=== PATIENT | female | born 1945 | race Caucasian/White ===

== ENCOUNTER 2017-10-31 05:08 | Outpatient (CLI) | payer MEDICARE ==
[~2017-10-31 05:08] MED LIST: LISI40TA4 PO; SYN0.112T PO; tramadol PO
== END 2017-10-31 23:59 | disposition home or self-care (01) ==
LOC: DIABETIC 05:08
PROVIDERS: ATTEND Family Medicine
DX: E11.9 Type 2 diabetes mellitus without complications (principal); I10 Essential (primary) hypertension
CPT/HCPCS: G0108

== ENCOUNTER 2018-01-31 04:50 | Outpatient (CLI) | payer MEDICARE | END 2018-01-31 23:59 | disposition home or self-care (01) | LOC: DIABETIC 04:50 | PROVIDERS: ATTEND Family Medicine | DX: E11.9 Type 2 diabetes mellitus without complications (principal); I10 Essential (primary) hypertension | CPT/HCPCS: G0108 ==

== ENCOUNTER 2018-05-09 01:55 | Outpatient (CLI) | payer MEDICARE | END 2018-05-09 23:59 | disposition home or self-care (01) | LOC: DIABETIC 01:55 | PROVIDERS: ATTEND Family Medicine | DX: E11.9 Type 2 diabetes mellitus without complications (principal) | CPT/HCPCS: G0108 ==

== ENCOUNTER 2018-09-06 01:58 | Outpatient (CLI) | payer MEDICARE | END 2018-09-06 23:59 | disposition home or self-care (01) | LOC: DIABETIC 01:58 | PROVIDERS: ATTEND Family Medicine | DX: E11.9 Type 2 diabetes mellitus without complications (principal); I10 Essential (primary) hypertension | CPT/HCPCS: G0108 ==

== ENCOUNTER 2019-01-03 00:42 | Outpatient (CLI) | payer MEDICARE | END 2019-01-03 23:59 | disposition home or self-care (01) | LOC: DIABETIC 00:42 | PROVIDERS: ATTEND Family Medicine | DX: E11.9 Type 2 diabetes mellitus without complications (principal); I10 Essential (primary) hypertension | CPT/HCPCS: G0108 ==

== ENCOUNTER 2019-04-12 01:47 | Outpatient (CLI) | payer MEDICARE | END 2019-04-12 23:59 | disposition home or self-care (01) | LOC: DIABETIC 01:47 | PROVIDERS: ATTEND Family Medicine | DX: E11.9 Type 2 diabetes mellitus without complications (principal); I10 Essential (primary) hypertension; Z79.899 Other long term (current) drug therapy | CPT/HCPCS: G0108 ==

== ENCOUNTER 2019-09-10 05:00 | Outpatient (CLI) | payer MEDICARE | END 2019-09-10 23:59 | disposition home or self-care (01) | LOC: DIABETIC 05:00 | PROVIDERS: ATTEND Family Medicine | DX: E11.9 Type 2 diabetes mellitus without complications (principal); I10 Essential (primary) hypertension; Z88.0 Allergy status to penicillin; Z88.2 Allergy status to sulfonamides; Z88.8 Allergy status to other drugs, medicaments and biological substances; Z88.6 Allergy status to analgesic agent | CPT/HCPCS: G0108 ==

== ENCOUNTER 2019-12-10 04:19 | Outpatient (CLI) | payer MEDICARE | END 2019-12-10 23:59 | disposition home or self-care (01) | LOC: DIABETIC 04:19 | PROVIDERS: ATTEND Family Medicine | DX: E11.9 Type 2 diabetes mellitus without complications (principal) | CPT/HCPCS: G0108 ==

== ENCOUNTER 2021-10-16 11:52 | Emergency (ER) | payer MEDICARE ==
[~2021-10-16] VITALS: Ht 165.1 cm; Wt 107.7 kg
[~2021-10-16 11:52] MED LIST changes: +LISI40TA13 PO; -LISI40TA4 PO
[2021-10-16] MEDS ORDERED: SOTROVIMAB 500mg injection 500 MG in normal saline 100ml IV soln 100 ML IV ONE (14:25)
[2021-10-16] MEDS ORDERED: SOTROVIMAB 500 MG in NS 100ml IV soln IV ONE (15:00)
[2021-10-16 15:01] LABS: ALANINE AMINOTRANSFERASE 36 U/L (12-78); ALBUMIN 3.2 G/DL (3.4-5.0); ALBUMIN/GLOBULIN RATIO 0.7 (1.1-1.5); ALKALINE PHOSPHATASE 106 IU/L (46-116); ANION GAP 8 (8-16); ASPARTATE AMINO TRANSFERASE 24 U/L (10-37); BILIRUBIN,TOTAL 0.2 MG/DL (0.1-1.0); BLOOD UREA NITROGEN 21 MG/DL (7-18); BUN/CREATININE RATIO 18.3 (6.6-38.0); CALCIUM 8.6 MG/DL (8.5-10.1); CHLORIDE 105 MMOL/L (99-107); CREATININE 1.15 MG/DL (0.40-0.90); GLUCOSE 93 MG/DL (70-104); SODIUM 141 MMOL/L (135-145); TOTAL CARBON DIOXIDE 27.9 MMOL/L (24-32); TOTAL PROTEIN 7.6 G/DL (6.4-8.2); eGFR 46 ML/MIN
[2021-10-16] MEDS ORDERED: acetaminophen 325mg tablet PO ONE (16:10)
[2021-10-16] MEDS ORDERED: BENZ-38 PO (16:59)
[2021-10-16 17:55] VITALS: BP 142/87
== END 2021-10-16 17:56 | disposition home or self-care (01) ==
LOC: ER 11:55
DX: U07.1 COVID-19 (principal); R05.9 Cough, unspecified; R19.7 Diarrhea, unspecified; Z88.0 Allergy status to penicillin; Z88.8 Allergy status to other drugs, medicaments and biological substances; Z88.2 Allergy status to sulfonamides; Z79.899 Other long term (current) drug therapy
CPT/HCPCS: 36415; 80053; 87635; 96365; 99284; C9803; J3490; Q0247

== ENCOUNTER 2023-12-27 17:25 | Inpatient (IN) | payer BC, MEDICARE ==
[~2023-12-27] VITALS: Ht 170.2 cm; Wt 103.8 kg
[2023-12-27] MEDS: albuterol 2.5 MG/3 ML nebule NEB ONE (18:45)
[2023-12-27] MEDS: methylPREDNISolone sod succ 125mg/2ml vial IV ONE (18:45)
[2023-12-27 18:46] VITALS: PULSE 96; RESP 19; O2SAT 93
[2023-12-27 18:58] VITALS: PULSE 97; RESP 19; O2SAT 97
[2023-12-27 19:25] LABS: BASOPHILS # (AUTO) 0.1 X10'3 (0-0.2); BASOPHILS % (AUTO) 1.1 % (0-1); EOSINOPHILS # (AUTO) 0.5 X10'3 (0-0.9); EOSINOPHILS % (AUTO) 4.6 % (0-6); HEMATOCRIT 41.9 % (35.0-45.0); HEMOGLOBIN 14.3 g/dl (12.0-16.0); LYMPHOCYTES # (AUTO) 3.4 X10'3 (1.1-4.8); LYMPHOCYTES % (AUTO) 33.3 % (21-51); MEAN CORPUSCULAR HEMOGLOBIN 31.2 PG (27.0-31.0); MEAN CORPUSCULAR HGB CONC 34.1 g/dL (33.0-36.5); MEAN CORPUSCULAR VOLUME 91.5 FL (78-98); MEAN PLATELET VOLUME 7.9 FL (7.4-10.4); MONOCYTES # (AUTO) 0.7 X10'3 (0-0.9); MONOCYTES % (AUTO) 6.7 % (2-12); NEUTROPHILS # (AUTO) 5.5 X10'3 (1.8-7.7); NEUTROPHILS % (AUTO) 54.3 % (42-75); PLATELET COUNT 291 X10'3 (140-440); RED BLOOD COUNT 4.58 X10'6 (4.20-5.60); RED CELL DISTRIBUTION WIDTH 14.2 % (11.5-14.5); WHITE BLOOD COUNT 10.1 X10'3 (4.5-11.0)
[2023-12-27 20:28] LABS: ALANINE AMINOTRANSFERASE 19 U/L (12-78); ALBUMIN 2.9 G/DL (3.4-5.0); ALBUMIN/GLOBULIN RATIO 0.7 (1.1-1.5); ALKALINE PHOSPHATASE 97 IU/L (46-116); ANION GAP 16 (8-16); BILIRUBIN,TOTAL 0.5 MG/DL (0.1-1.0); BLOOD UREA NITROGEN 34 MG/DL (7-18); CALCIUM 8.1 MG/DL (8.5-10.1); CHLORIDE 104 MMOL/L (99-107); CREATININE 0.79 MG/DL (0.40-0.90); GLUCOSE 204 MG/DL (70-104); SODIUM 139 MMOL/L (135-145); TOTAL CARBON DIOXIDE 19.3 MMOL/L (24-32); TOTAL PROTEIN 6.8 G/DL (6.4-8.2); eCRCL 58 ML/MIN; eGFR 71 ML/MIN
[2023-12-27 20:36] LABS: PRO BRAIN NATRIURETIC PEPTIDE 91 PG/ML (0-450)
[2023-12-27 20:38] LABS: ASPARTATE AMINO TRANSFERASE 27 U/L (10-37); POTASSIUM 4.5 MMOL/L (3.5-5.1)
[2023-12-27] MEDS ORDERED: HYDROcodone/acetaminophen 5mg/325mg tablet PO PRN (22:00)
[2023-12-27] MEDS ORDERED: ondansetron/PF 4mg/2ml inj IV PRN (22:00)
[2023-12-27] MEDS ORDERED: magnesium 2GM in 50ml NS 50 ML IV PRN (22:00)
[2023-12-27] MEDS ORDERED: acetaminophen 325mg tablet PO PRN (22:00)
[2023-12-27] MEDS ORDERED: mag hydrox/Alum hydrox/simeth 30ml oral suspension PO PRN (22:00)
[2023-12-27] MEDS ORDERED: magnesium hydroxide 30ml (MOM) UD suspension PO PRN (22:00)
[2023-12-27] MEDS ORDERED: HYDROcodone/acetaminophen 10/325mg tab PO PRN (22:00)
[2023-12-27] MEDS ORDERED: potassium Cl 40MEQ/1/2NS 520ml 520 ML IV PRN (22:00)
[2023-12-27] MEDS ORDERED: magnesium Cl slow-release 64mg tablet PO PRN (22:00)
[2023-12-27] MEDS ORDERED: magnesium 4gm in 100ml NS 100 ML IV PRN (22:00)
[2023-12-27] MEDS ORDERED: potassium Cl 20 mEq SR tablet PO PRN ×2 (22:00)
[2023-12-27] MEDS ORDERED: CefTRIAXone/D5W-Rocephin 1gm 50 ML IV SCH (22:15)
[2023-12-27] MEDS ORDERED: DEXTROSE 15 GM of carb/4 tabs (each vial/BOTTLE has 4 tablets) PO PRN ×2 (22:30)
[2023-12-27] MEDS ORDERED: dextrose 50%-water 50ml dispensing syringe IV PRN ×2 (22:30)
[2023-12-27] MEDS ORDERED: INSULIN LISPRO 100 UNIT/ML INSULN.PEN MULTI-DOSE SQ SCH (22:30)
[2023-12-27] MEDS ORDERED: glucagon, human recombinant 1mg kit SUBCUT PRN (22:30)
[2023-12-27 22:31] LABS: HEMOGLOBIN A1C 6.9 % (4.5-6.2)
[2023-12-27] MEDS: MESSAGE TO PHARMACY PO ONE (22:43)
[2023-12-27 22:54] LABS: D-DIMER 6.83 MG/L FEU (0-0.50)
[2023-12-27] MEDS: levoFLOXACIN-Levaquin 500mg/D5 100 ML IV SCH (23:07)
[2023-12-27] MEDS ORDERED: iohexol 350MG/ML 100ml bottle IV ONE (23:25)
[2023-12-27 23:41] VITALS: PULSE 91; RESP 20; O2SAT 93
[2023-12-27] MEDS: ipratropium/albuterol 3ml nebule NEB PRN (23:41)
[2023-12-27 23:48] VITALS: PULSE 85; RESP 20
[2023-12-28] VITALS (14 sets, daily range): BP systolic 115–146; BP diastolic 67–100; PULSE 74–106; RESP 13–23; TEMP 97.9–98.5; O2SAT 92–97
[2023-12-28] MEDS ORDERED: MESSAGE TO NURSING PO NR (00:50)
[2023-12-28] MEDS ORDERED: EMPA10TA PO (04:21)
[2023-12-28] MEDS ORDERED: METF-900 PO (04:21)
[2023-12-28] MEDS: normal saline 1000ml 1,000 ML IV ONE (04:27)
[2023-12-28 04:55] LABS: BILIRUBIN,URINE NEGATIVE (Neg); CLARITY,URINE CLEAR (Clear); COLOR,URINE YELLOW (Yellow); GLUCOSE, URINE >=1000 mg/dl (Neg); KETONES,URINE NEGATIVE (Neg); LEUKOCYTE ESTERASE ,URINE NEGATIVE (Neg); NITRITES, URINE NEGATIVE (Neg); OCCULT BLOOD,URINE SMALL (Neg); PH,URINE 5.5 (4.8-8.0); PROTEIN,URINE NEGATIVE (Neg); UROBILINOGEN,URINE 0.2 E.U/dL (0.2-1.0)
[2023-12-28 04:57] LABS: UA COLLECTION TYPE NON-SPECIFIED
[2023-12-28 05:03] LABS: BACTERIA,URINE 1+ /HPF (Neg); MUCUS STRANDS NONE SEEN /LPF (Neg); SQUAMOUS EPITHELIAL CELL,UR FEW /LPF (FEW); WBC,URINE 0-4 /HPF (0-4)
[2023-12-28 06:36] LABS: BASOPHILS % (AUTO) 0.4 % (0-1); EOSINOPHILS % (AUTO) 0 % (0-6); HEMOGLOBIN 13.8 g/dl (12.0-16.0); LYMPHOCYTES # (AUTO) 1.5 X10'3 (1.1-4.8); LYMPHOCYTES % (AUTO) 19.6 % (21-51); MEAN CORPUSCULAR HEMOGLOBIN 30.8 PG (27.0-31.0); MEAN CORPUSCULAR HGB CONC 33.6 g/dL (33.0-36.5); MEAN CORPUSCULAR VOLUME 91.5 FL (78-98); MEAN PLATELET VOLUME 7.8 FL (7.4-10.4); MONOCYTES # (AUTO) 0.1 X10'3 (0-0.9); MONOCYTES % (AUTO) 0.9 % (2-12); NEUTROPHILS # (AUTO) 6.2 X10'3 (1.8-7.7); NEUTROPHILS % (AUTO) 79.1 % (42-75); PLATELET COUNT 301 X10'3 (140-440); RED BLOOD COUNT 4.48 X10'6 (4.20-5.60); WHITE BLOOD COUNT 7.8 X10'3 (4.5-11.0)
[2023-12-28 06:53] LABS: ANION GAP 11 (8-16); BLOOD UREA NITROGEN 31 MG/DL (7-18); BUN/CREATININE RATIO 22.8 (10.0-20.0); CALCIUM 8.6 MG/DL (8.5-10.1); CHLORIDE 104 MMOL/L (99-107); CREATININE 1.36 MG/DL (0.40-0.90); GLUCOSE 199 MG/DL (70-104); POTASSIUM 4.7 MMOL/L (3.5-5.1); SODIUM 137 MMOL/L (135-145); TOTAL CARBON DIOXIDE 22.1 MMOL/L (24-32); eCRCL 34 ML/MIN; eGFR 38 ML/MIN
[2023-12-28] MEDS ORDERED: ALB0.5UD IH (07:57)
[2023-12-28] MEDS: K and/or MAG REPLACEMENT MC SCH (08:00)
[2023-12-28] MEDS: heparin, porcine 5000 units/ml vial SQ SCH (08:37)
[2023-12-28] MEDS: normal saline 1000ml 500 ML IV ONE (08:41)
[2023-12-28] MEDS: methylPREDNISolone sod succ 125mg/2ml vial IV SCH (08:42)
[2023-12-28] MEDS: insulin Lispro (HumaLOG) vial - multi-dose SQ SCH (09:19)
[2023-12-28] MEDS ORDERED: FLU VACC QS2023-24(6MOS UP)/PF 60 MCG/0.5 ML SYRINGE IM ONE (10:00)
[2023-12-28] MEDS ORDERED: iohexol 350MG/ML 100ml bottle IV ONE (10:04)
[2023-12-28] MEDS: PERFLUTREN PROTEIN-A MICROSPHR (Optison) 0.22 MG/ML 3ML VIAL IV ONE (11:20)
[2023-12-28] MEDS ORDERED: heparin 10,000 units/1 ML INJ IV ONE (11:20)
[2023-12-28] MEDS ORDERED: heparin 10,000 units/1 ML INJ IV PRN (11:20)
[2023-12-28] MEDS ORDERED: levoFLOXACIN-Levaquin 500mg/D5 100 ML IV ONE (12:15)
[2023-12-28] MEDS: heparin 25,000 UNIT/250ml bag 250 ML IV PRN (12:32)
[2023-12-28] MEDS: heparin 10,000 units/1 ML INJ IV ONE (12:33)
[2023-12-28] MEDS: levoTHYROXINE 112mcg tablet PO ONE ×2 (12:34→12:35)
[2023-12-28] MEDS: insulin glargine (Lantus) pen - multi-dose SQ SCH (21:15)
[2023-12-29] VITALS (9 sets, daily range): BP systolic 111–154; BP diastolic 70–99; PULSE 71–96; RESP 12–25; TEMP 97.3–98.8; O2SAT 92–97
[2023-12-29] MEDS: acetaminophen 325mg tablet PO PRN (03:38)
[2023-12-29 04:47] LABS: BASOPHILS # (AUTO) 0.3 X10'3 (0-0.2); BASOPHILS % (AUTO) 1.4 % (0-1); EOSINOPHILS # (AUTO) 0.6 X10'3 (0-0.9); HEMATOCRIT 39.6 % (35.0-45.0); HEMOGLOBIN 13.1 g/dl (12.0-16.0); LYMPHOCYTES # (AUTO) 2.3 X10'3 (1.1-4.8); LYMPHOCYTES % (AUTO) 11.7 % (21-51); MEAN CORPUSCULAR HEMOGLOBIN 30.1 PG (27.0-31.0); MEAN CORPUSCULAR VOLUME 91.3 FL (78-98); MEAN PLATELET VOLUME 7.7 FL (7.4-10.4); MONOCYTES # (AUTO) 0.3 X10'3 (0-0.9); MONOCYTES % (AUTO) 1.4 % (2-12); NEUTROPHILS # (AUTO) 16.3 X10'3 (1.8-7.7); NEUTROPHILS % (AUTO) 82.5 % (42-75); PLATELET COUNT 316 X10'3 (140-440); RED BLOOD COUNT 4.34 X10'6 (4.20-5.60); RED CELL DISTRIBUTION WIDTH 14.3 % (11.5-14.5); WHITE BLOOD COUNT 19.8 X10'3 (4.5-11.0)
[2023-12-29 04:56] LABS: ALBUMIN 3.1 G/DL (3.4-5.0); ANION GAP 8 (8-16); BLOOD UREA NITROGEN 35 MG/DL (7-18); BUN/CREATININE RATIO 26.3 (10.0-20.0); CALCIUM 8.7 MG/DL (8.5-10.1); CHLORIDE 105 MMOL/L (99-107); CREATININE 1.33 MG/DL (0.40-0.90); GLUCOSE 182 MG/DL (70-104); MAGNESIUM 2.2 MG/DL (1.5-2.4); PHOSPHORUS 4.2 MG/DL (2.3-4.5); POTASSIUM 4.6 MMOL/L (3.5-5.1); SODIUM 136 MMOL/L (135-145); TOTAL CARBON DIOXIDE 23.3 MMOL/L (24-32); eCRCL 34 ML/MIN; eGFR 39 ML/MIN
[2023-12-29] MEDS: levoTHYROXINE 112mcg tablet PO SCH (07:00)
[2023-12-29] MEDS: lisinopril 20mg tablet PO SCH (07:58)
[2023-12-29] MEDS: EMPAGLIFLOZIN 10 MG TABLET PO SCH (08:01)
[2023-12-29] MEDS: levoFLOXACIN-Levaquin 250mg/D5 50 ML IV SCH (08:03)
[2023-12-30] VITALS (11 sets, daily range): BP systolic 123–148; BP diastolic 70–89; PULSE 60–96; RESP 13–24; TEMP 97.9–98.2; O2SAT 92–96
[2023-12-30 02:54] LABS: BASOPHILS # (AUTO) 0.1 X10'3 (0-0.2); BASOPHILS % (AUTO) 0.6 % (0-1); EOSINOPHILS % (AUTO) 0.1 % (0-6); HEMATOCRIT 40.7 % (35.0-45.0); HEMOGLOBIN 13.6 g/dl (12.0-16.0); LYMPHOCYTES # (AUTO) 2.9 X10'3 (1.1-4.8); MEAN CORPUSCULAR HEMOGLOBIN 30.8 PG (27.0-31.0); MEAN CORPUSCULAR HGB CONC 33.5 g/dL (33.0-36.5); MEAN PLATELET VOLUME 7.7 FL (7.4-10.4); MONOCYTES # (AUTO) 0.4 X10'3 (0-0.9); MONOCYTES % (AUTO) 2.3 % (2-12); NEUTROPHILS # (AUTO) 14.5 X10'3 (1.8-7.7); PLATELET COUNT 335 X10'3 (140-440); RED BLOOD COUNT 4.42 X10'6 (4.20-5.60); RED CELL DISTRIBUTION WIDTH 14.3 % (11.5-14.5); WHITE BLOOD COUNT 17.9 X10'3 (4.5-11.0)
[2023-12-30 03:06] LABS: ALBUMIN 3.1 G/DL (3.4-5.0); ANION GAP 8 (8-16); BLOOD UREA NITROGEN 42 MG/DL (7-18); BUN/CREATININE RATIO 27.8 (10.0-20.0); CALCIUM 8.7 MG/DL (8.5-10.1); CHLORIDE 106 MMOL/L (99-107); CREATININE 1.51 MG/DL (0.40-0.90); GLUCOSE 146 MG/DL (70-104); MAGNESIUM 2.2 MG/DL (1.5-2.4); PHOSPHORUS 4.4 MG/DL (2.3-4.5); POTASSIUM 4.8 MMOL/L (3.5-5.1); SODIUM 138 MMOL/L (135-145); TOTAL CARBON DIOXIDE 24.3 MMOL/L (24-32); eCRCL 30 ML/MIN; eGFR 33 ML/MIN
[2023-12-30] MEDS: normal saline 1000ml 1,000 ML IV SCH (07:50)
[2023-12-30 17:29] LABS: ALBUMIN 2.9 G/DL (3.4-5.0); ANION GAP 12 (8-16); BLOOD UREA NITROGEN 45 MG/DL (7-18); BUN/CREATININE RATIO 30.4 (10.0-20.0); CALCIUM 8.6 MG/DL (8.5-10.1); CHLORIDE 109 MMOL/L (99-107); CREATININE 1.48 MG/DL (0.40-0.90); GLUCOSE 124 MG/DL (70-104); POTASSIUM 4.6 MMOL/L (3.5-5.1); SODIUM 141 MMOL/L (135-145); TOTAL CARBON DIOXIDE 20.4 MMOL/L (24-32); eCRCL 31 ML/MIN; eGFR 34 ML/MIN
[2023-12-30] MEDS: dextrose 5%-water 1,000 ML IV SCH (20:44)
[2023-12-30] MEDS: apixaban 5mg tablet PO SCH (20:52)
[2023-12-31 02:00] VITALS: BP 118/66; PULSE 62; RESP 17; TEMP 97.6; O2SAT 91
[2023-12-31 06:00] VITALS: BP 128/65; PULSE 58; RESP 16; TEMP 97.9; O2SAT 95
[2023-12-31 06:30] VITALS: O2SAT 94
[2023-12-31 07:46] LABS: BASOPHILS # (AUTO) 0.1 X10'3 (0-0.2); BASOPHILS % (AUTO) 0.5 % (0-1); EOSINOPHILS % (AUTO) 0.1 % (0-6); HEMATOCRIT 43.2 % (35.0-45.0); HEMOGLOBIN 14.2 g/dl (12.0-16.0); LYMPHOCYTES # (AUTO) 5.3 X10'3 (1.1-4.8); LYMPHOCYTES % (AUTO) 31.9 % (21-51); MEAN CORPUSCULAR HEMOGLOBIN 30.4 PG (27.0-31.0); MEAN CORPUSCULAR HGB CONC 32.8 g/dL (33.0-36.5); MEAN CORPUSCULAR VOLUME 92.5 FL (78-98); MEAN PLATELET VOLUME 7.8 FL (7.4-10.4); MONOCYTES # (AUTO) 1.4 X10'3 (0-0.9); MONOCYTES % (AUTO) 8.3 % (2-12); NEUTROPHILS # (AUTO) 9.8 X10'3 (1.8-7.7); NEUTROPHILS % (AUTO) 59.2 % (42-75); PLATELET COUNT 333 X10'3 (140-440); RED BLOOD COUNT 4.67 X10'6 (4.20-5.60); RED CELL DISTRIBUTION WIDTH 14.8 % (11.5-14.5); WHITE BLOOD COUNT 16.6 X10'3 (4.5-11.0)
[2023-12-31 08:13] LABS: ALBUMIN 2.8 G/DL (3.4-5.0); ANION GAP 14 (8-16); BLOOD UREA NITROGEN 44 MG/DL (7-18); BUN/CREATININE RATIO 35.8 (10.0-20.0); CALCIUM 8.6 MG/DL (8.5-10.1); CHLORIDE 107 MMOL/L (99-107); CREATININE 1.23 MG/DL (0.40-0.90); GLUCOSE 139 MG/DL (70-104); MAGNESIUM 2.6 MG/DL (1.5-2.4); PHOSPHORUS 4.4 MG/DL (2.3-4.5); SODIUM 138 MMOL/L (135-145); THYROID STIMULATING HORMONE 0.22 ulU/ml (0.34-4.50); TOTAL CARBON DIOXIDE 17.1 MMOL/L (24-32); eCRCL 37 ML/MIN; eGFR 42 ML/MIN
[2023-12-31 08:14] LABS: POTASSIUM 4.1 MMOL/L (3.5-5.1)
[2023-12-31 08:18] LABS: TOTAL CELLS COUNTED 100
[2023-12-31 08:19] LABS: PLATELET ESTIMATE NORMAL
[2023-12-31] MEDS: sodium bicarbonate 1meq/ml inj 150 ML in dextrose 5%-water 1,000 ML IV SCH (08:25)
[2023-12-31 10:38] LABS: FREE T4 (FREE THYROXINE) 1.43 NG/DL (0.73-1.40)
[2023-12-31] MEDS ORDERED: APIX5TAB5 PO (10:50)
[2023-12-31] MEDS ORDERED: PRED20TA PO (10:50)
[2023-12-31 11:00] VITALS: BP 125/68; PULSE 85; RESP 20; TEMP 98.8; O2SAT 94
[2023-12-31 16:07] VITALS: BP 108/68; PULSE 81; RESP 16; TEMP 98.8; O2SAT 95
== END 2023-12-31 17:07 | disposition home or self-care (01) | DRG 175 ==
LOC: ER 17:26 → ED HOLD 22:13 → EDBEDREQ 12-28 02:04 → PCU 3S 12-28 02:46
PROVIDERS: ADMIT Internal Medicine Critical Care Medicine; ATTEND Family Medicine
PROC: B32T1ZZ Computerized Tomography (CT Scan) of Left Pulmonary Artery using Low Osmolar Contrast (ICD-10-PCS; principal; 2023-12-28)
PROC: B3201ZZ Computerized Tomography (CT Scan) of Thoracic Aorta using Low Osmolar Contrast (ICD-10-PCS; 2023-12-28)
PROC: B32S1ZZ Computerized Tomography (CT Scan) of Right Pulmonary Artery using Low Osmolar Contrast (ICD-10-PCS; 2023-12-28)
PROC: 5A09357 Assistance with Respiratory Ventilation, Less than 24 Consecutive Hours, Continuous Positive Airway Pressure (ICD-10-PCS; 2023-12-28)
PROC: 5A09357 Assistance with Respiratory Ventilation, Less than 24 Consecutive Hours, Continuous Positive Airway Pressure (ICD-10-PCS; 2023-12-28)
DX: I26.99 Other pulmonary embolism without acute cor pulmonale (principal); J96.01 Acute respiratory failure with hypoxia; N17.0 Acute kidney failure with tubular necrosis; J44.1 Chronic obstructive pulmonary disease with (acute) exacerbation; E87.20 Acidosis, unspecified; E11.9 Type 2 diabetes mellitus without complications; E03.9 Hypothyroidism, unspecified; Z20.822 Contact with and (suspected) exposure to COVID-19; I11.0 Hypertensive heart disease with heart failure; I50.9 Heart failure, unspecified; D72.829 Elevated white blood cell count, unspecified; G47.33 Obstructive sleep apnea (adult) (pediatric); Z88.6 Allergy status to analgesic agent; Z88.1 Allergy status to other antibiotic agents; Z88.0 Allergy status to penicillin; Z88.2 Allergy status to sulfonamides; Z90.81 Acquired absence of spleen; Z87.891 Personal history of nicotine dependence; Z99.81 Dependence on supplemental oxygen; Z82.49 Family history of ischemic heart disease and other diseases of the circulatory system
CPT/HCPCS: 36415; 71045; 71275; 80048; 80053; 81001; 82948; 83036; 83605; 83735; 83880; 84100; 84145; 84439; 84443; 84484; 85007; 85025; 85379; 85730; 87040; 87081; 87634; 87811; 90686; 93005; 93306; 93970; 94640; 94664; 94760; 96374; 97116; 97161; 97530; 99285; A6250; A6258; G0378; J1644; J1815; J1956; J2930; J3490; J7030; J7040; J7070; Q9967

== ENCOUNTER 2024-01-09 16:30 | Emergency (ER) | payer BC ==
[~2024-01-09] VITALS: Ht 165.1 cm; Wt 98.6 kg
[~2024-01-09 16:30] MED LIST changes: +ALB0.5UD IH; +APIX5TAB5 PO; +EMPA10TA PO; +METF-900 PO; +PRED20TA PO; -tramadol PO
[2024-01-09 16:56] VITALS: BP 106/58; PULSE 79; RESP 19; TEMP 98.2; O2SAT 99
[2024-01-09 18:09] LABS: BASOPHILS # (AUTO) 0.1 X10'3 (0-0.2); BASOPHILS % (AUTO) 0.6 % (0-1); EOSINOPHILS % (AUTO) 0.3 % (0-6); HEMATOCRIT 39.3 % (35.0-45.0); HEMOGLOBIN 12.8 g/dl (12.0-16.0); LYMPHOCYTES # (AUTO) 2.7 X10'3 (1.1-4.8); LYMPHOCYTES % (AUTO) 20.4 % (21-51); MEAN CORPUSCULAR HEMOGLOBIN 30.5 PG (27.0-31.0); MEAN CORPUSCULAR HGB CONC 32.6 g/dL (33.0-36.5); MEAN CORPUSCULAR VOLUME 93.4 FL (78-98); MEAN PLATELET VOLUME 7.9 FL (7.4-10.4); MONOCYTES # (AUTO) 0.9 X10'3 (0-0.9); MONOCYTES % (AUTO) 6.9 % (2-12); NEUTROPHILS # (AUTO) 9.4 X10'3 (1.8-7.7); NEUTROPHILS % (AUTO) 71.8 % (42-75); PLATELET COUNT 408 X10'3 (140-440); RED BLOOD COUNT 4.21 X10'6 (4.20-5.60); RED CELL DISTRIBUTION WIDTH 14.9 % (11.5-14.5); WHITE BLOOD COUNT 13.1 X10'3 (4.5-11.0)
[2024-01-09 18:29] LABS: ALANINE AMINOTRANSFERASE 39 U/L (12-78); ALBUMIN 2.8 G/DL (3.4-5.0); ALBUMIN/GLOBULIN RATIO 0.8 (1.1-1.5); ALKALINE PHOSPHATASE 148 IU/L (46-116); ANION GAP 7 (8-16); ASPARTATE AMINO TRANSFERASE 14 U/L (10-37); BILIRUBIN,TOTAL 0.3 MG/DL (0.1-1.0); BLOOD UREA NITROGEN 48 MG/DL (7-18); BUN/CREATININE RATIO 28.9 (10.0-20.0); CALCIUM 8.7 MG/DL (8.5-10.1); CHLORIDE 101 MMOL/L (99-107); CREATININE 1.66 MG/DL (0.40-0.90); GLUCOSE 242 MG/DL (70-104); POTASSIUM 5.7 MMOL/L (3.5-5.1); SODIUM 135 MMOL/L (135-145); TOTAL CARBON DIOXIDE 27.2 MMOL/L (24-32); TOTAL PROTEIN 6.3 G/DL (6.4-8.2); eCRCL 26 ML/MIN; eGFR 30 ML/MIN
[2024-01-09] MEDS ORDERED: normal saline 1000ML IV soln IVB ONE (22:10)
[2024-01-09] MEDS ORDERED: magnesium 2GM in 50ml NS 50 ML IV ONE (22:10)
[2024-01-09 22:24] LABS: MAGNESIUM 2.4 MG/DL (1.5-2.4)
== END 2024-01-09 22:30 | disposition home or self-care (01) ==
LOC: ER 16:31
DX: E87.5 Hyperkalemia (principal); E86.0 Dehydration; Z88.0 Allergy status to penicillin; Z88.8 Allergy status to other drugs, medicaments and biological substances; E11.9 Type 2 diabetes mellitus without complications; F41.9 Anxiety disorder, unspecified; I11.0 Hypertensive heart disease with heart failure; I50.9 Heart failure, unspecified; I26.99 Other pulmonary embolism without acute cor pulmonale
CPT/HCPCS: 36415; 80053; 83735; 85025; 99283; A4615

== ENCOUNTER 2024-04-18 12:19 | Emergency (ER) | payer BC ==
[~2024-04-18] VITALS: Ht 165.1 cm; Wt 107.2 kg
[2024-04-18 12:25] VITALS: BP 117/47; PULSE 86; TEMP 97.8; O2SAT 95
[2024-04-18 12:55] LABS: BASOPHILS # (AUTO) 0.2 X10'3 (0-0.2); BASOPHILS % (AUTO) 1.5 % (0-1); EOSINOPHILS # (AUTO) 0.7 X10'3 (0-0.9); EOSINOPHILS % (AUTO) 5.2 % (0-6); NEUTROPHILS # (AUTO) 5.3 X10'3 (1.8-7.7)
[2024-04-18 12:57] LABS: HEMATOCRIT 42.8 % (35.0-45.0); LYMPHOCYTES # (AUTO) 4.5 X10'3 (1.1-4.8); MEAN CORPUSCULAR HEMOGLOBIN 30.8 PG (27.0-31.0); MEAN CORPUSCULAR HGB CONC 32.7 g/dL (33.0-36.5); MEAN CORPUSCULAR VOLUME 94.2 FL (78-98); MEAN PLATELET VOLUME 8.1 FL (7.4-10.4); MONOCYTES # (AUTO) 2.3 X10'3 (0-0.9); MONOCYTES % (AUTO) 17.5 % (2-12); NEUTROPHILS % (AUTO) 40.8 % (42-75); PLATELET COUNT 302 X10'3 (140-440); RED BLOOD COUNT 4.54 X10'6 (4.20-5.60); RED CELL DISTRIBUTION WIDTH 14.4 % (11.5-14.5)
[2024-04-18 13:05] LABS: ALBUMIN 3.3 G/DL (3.4-5.0); ANION GAP 9 (8-16); BLOOD UREA NITROGEN 28 MG/DL (7-18); BUN/CREATININE RATIO 19.4 (10.0-20.0); CALCIUM 9.3 MG/DL (8.5-10.1); CHLORIDE 97 MMOL/L (99-107); CREATININE 1.44 MG/DL (0.40-0.90); GLUCOSE 138 MG/DL (70-104); SODIUM 131 MMOL/L (135-145); TOTAL CARBON DIOXIDE 24.6 MMOL/L (24-32); eCRCL 29 ML/MIN; eGFR 35 ML/MIN
[2024-04-18 13:15] LABS: TOTAL CELLS COUNTED 100
[2024-04-18 13:20] LABS: PLATELET ESTIMATE NORMAL
[2024-04-18 13:49] VITALS: RESP 14
[2024-04-18] MEDS ORDERED: iohexol 300mg/ml 100ml inj. ONE (13:53)
[2024-04-18 15:01] LABS: BILIRUBIN,URINE NEGATIVE (Neg); CLARITY,URINE CLEAR (Clear); COLOR,URINE YELLOW (Yellow); GLUCOSE, URINE NEGATIVE (Neg); KETONES,URINE NEGATIVE (Neg); LEUKOCYTE ESTERASE ,URINE NEGATIVE (Neg); NITRITES, URINE NEGATIVE (Neg); OCCULT BLOOD,URINE SMALL (Neg); PH,URINE 5.5 (4.8-8.0); PROTEIN,URINE NEGATIVE (Neg); UA COLLECTION TYPE CLN CATCH MIDSTREAM; UROBILINOGEN,URINE 0.2 E.U/dL (0.2-1.0)
[2024-04-18 15:06] LABS: SQUAMOUS EPITHELIAL CELL,UR MODERATE /LPF (FEW); WBC,URINE NONE SEEN /HPF (0-4)
[2024-04-18 15:07] LABS: BACTERIA,URINE FEW /HPF (Neg)
[2024-04-18] MEDS ORDERED: HYDR-3965 PO (15:31)
[2024-04-19] MEDS ORDERED: HYDR-3965 PO (19:12)
== END 2024-04-18 16:19 | disposition home or self-care (01) ==
LOC: ER 12:20
DX: R60.0 Localized edema (principal); L03.115 Cellulitis of right lower limb; E11.9 Type 2 diabetes mellitus without complications; F41.9 Anxiety disorder, unspecified; I11.0 Hypertensive heart disease with heart failure; I50.9 Heart failure, unspecified; Z88.0 Allergy status to penicillin; Z88.8 Allergy status to other drugs, medicaments and biological substances; Z79.899 Other long term (current) drug therapy; Z79.84 Long term (current) use of oral hypoglycemic drugs; Z79.52 Long term (current) use of systemic steroids; Z86.711 Personal history of pulmonary embolism
CPT/HCPCS: 36415; 71045; 74177; 80048; 81001; 83605; 84145; 85007; 85025; 87040; 99285; Q9967

== ENCOUNTER 2025-02-12 14:50 | Emergency (ER) | payer BC, OTHER ==
[~2025-02-12] VITALS: Ht 162.6 cm; Wt 91.7 kg
[~2025-02-12 14:50] MED LIST changes: +HYDR-3965 PO
[2025-02-12 14:53] VITALS: TEMP 97
--- NOTE | 2025-02-12 15:07 | Physician Documentation ---
History of Present Illness ~ Chief Complaint: Confused Stated Complaint: ALTERED MENTAL STATUS Time Seen by MD: 14:58 Primary Medical Doctor: TINO LYLES This pleasant 79-year-old female returns to the ED after of recently being diagnosed with the lymphoma and going through multiple cancer treatments including chemotherapy. Primary concern today is confusion for the last week.. She has also had a recent tumor on the left side of her face treated via chemotherapy and radiation Her daughter who is a infectious disease nurse has reported that patient's memory and overall behavior waxes and wanes. She seems more irritable than n ormal. Says the nurse Medication Reconciliation Allergies: Coded Allergies: Penicillins (Verified Allergy, Unknown, 02/12/25) aspirin (Verified Allergy, Unknown, 02/12/25) sulfamethoxazole (Verified Allergy, Unknown, 02/12/25) trimethoprim (Verified Allergy, Unknown, 02/12/25) Scheduled Apixaban (Eliquis), 1 TAB PO UD Empagliflozin (Jardiance), 1 TAB PO DAILY, (Reported) Levothyroxine Sodium (Synthroid), 1 TABLET PO DAILY, (Reported) Lisinopril* (Lisinopril*), 1 TABLET PO DAILY, (Reported) Metformin Hcl* (Metformin ER*), 1 TAB PO BID, (Reported) Prednisone* (Prednisone*), 2 TAB PO DAILY Scheduled PRN Albuterol Sulfate Nebs* (Proventil Nebs*), Unknown Dose IH Q6H PRN for SOB or wheezing, (Reported) Hydrocodone Bit/Acetaminophen 5/325 MG ([place] 5/325 MG), 1 TAB PO Q4-6 hours PRN for pain Past Medical History Past Medical History: Hypertension, Bronchitis, Pneumonia, Pulmonary Embolism, Diabetes, Anxiety Past Surgical History: no surgical history Patient History: (CHF) Congestive heart failure MOTHER ( AT AGE 78 ESRD, DEMENTIA, CHF, DM) FH: Alzheimers disease FATHER ( AT AGE 79) Drug Use: none Lives In: Home Review of Systems All Other Systems at this time: Reviewed and Negative ROS As stated above in the HPI, otherwise all systems are reviewed and negative. Physical Exam Vital Signs: Temperature: 97.0, Source: Temporal, Heart Rate: 91, Respiratory Rate: 18, BP: 139/93, Pulse Oximetry: 93, Weight: 91.700 Physical Exam General: Alert, no apparent distress. HEENT: PERRL, EOMI, no injection, moist mucous membranes. Respiratory: Lungs clear, no respiratory distress. Cardiovascular: Regular rate and rhythm, no murmurs. Neurologic: Oriented x4 Psychiatric: Normal mood and affect. Skin: Normal color, warm and dry. No edema, no ecchymosis. Progress Results/Orders Results/Orders Orders - HERRERA HERNANDEZ MD General Nursing Order (02/12/25 19:22) Completed Orders - HERRERA HERNANDEZ MD Ua With Microscopic (02/12/25 20:11) Vital Signs 02/12/25 02/12/25 02/12/25 14:53 15:27 17:41 Temp 97.0 Pulse 91 88 Resp 18 18 B/P (MAP) 139/93 134/80 (98) Pulse Ox 93 96 O2 Flow Rate 0 Laboratory Tests Test 02/12/25 15:24 02/12/25 20:11 White Blood Count 5.7 Red Blood Count 3.91 L Hemoglobin 12.5 Hematocrit 36.9 Mean Corpuscular Volume 94.4 Mean Corpuscular Hemoglobin 31.9 H Mean Corpuscular Hemoglobin Concent 33.7 Red Cell Distribution Width 17.6 H Platelet Count 283 Mean Platelet Volume 7.7 Neutrophils (%) (Auto) 47.8 Lymphocytes (%) (Auto) 29.5 Monocytes (%) (Auto) 18.4 H Eosinophils (%) (Auto) 2.9 Basophils (%) (Auto) 1.4 H Neutrophils # (Auto) 2.7 Lymphocytes # (Auto) 1.7 Monocytes # (Auto) 1.1 H Eosinophils # (Auto) 0.2 Basophils # (Auto) 0.1 CBC Comment Differential Total Cells Counted 100 Neutrophils % (Manual) 48.0 Lymphocytes % (Manual) 27.0 Monocytes % (Manual) 22.0 H Eosinophils % (Manual) 3.0 Platelet Estimate Normal Red Blood Cell Morphology Perf Basophilic Stippling Anisocytosis 1+ Prothrombin Time 11.5 INR International Normalized Ratio 1.1 Activated Partial Thromboplast Time 29 Coagulation Comments Sodium Level 136 Potassium Level 4.0 Chloride Level 101 Carbon Dioxide Level 29.1 Anion Gap 6 L Blood Urea Nitrogen 12 Creatinine 0.84 Estimated GFR/1.73 m2 66 BUN/Creatinine Ratio 14.3 Glucose Level 117 H Calcium Level 8.9 Albumin 3.2 L Chemistry Comments Urine Specimen Description Cln catch midstream Urine Color Yellow Urine Clarity Clear Urine pH 6.0 Urine Specific [place] 1.010 Urine Protein Negative Urine Glucose (UA) Negative Urine Ketones Negative Urine Occult Blood Small Urine Nitrite Negative Urine Bilirubin Negative Urine Urobilinogen 0.2 Urine Leukocyte Esterase Negative Urine RBC 3-10 Urine WBC 5-10 H Urine Squamous Epithelial Cells Few Urine Transitional Epithelial Cells Few Urine Bacteria Few Volume Urine Centrifuged 10 ml Urine Comment Medical Decision Making Findings Received care of patient to follow up labs and imaging. Labs and imaging reassuring. MRIs negative for acute process. Urinalysis is clear. Possible paraneoplastic syndrome or side effects of both chemo and radiation or process of cancer. Offered admission for further investigation however patient is declining and would prefer to follow up on outpatient basis. ER precautions discussed. Family is agreeable at bedside to this plan. Departure Disposition: HOME / SELF CARE / HOMELESS Impression: Primary Impression: Altered mental status Condition: Fair Discharge Instructions: Altered Mental Status Additional Instructions: Follow up with doctor soon as possible for re-evaluation. Urinalysis today was clear as was MRI and labs. Referrals: NO PRIMARY CARE PROVIDER (PCP) Education Educated: Patient, Family Educated regarding: need for follow up Signature Scribe Signature: No scribe Attestation: The note accurately reflects work and decisions made by me.Herrera Hernandez MD 02/12/25 20:43 AIDAN IVORY NP February 12, 2025 15:07 HERRERA HERNANDEZ MD February 12, 2025 20:43
--- NOTE | 2025-02-12 15:16 | ELECTROCARDIOGRAPH REPORT ---
[facility] Test Date: 2025-02-12 Test Time: 15:14:28 Pat Name: QUINTON ROSA [facility]- [id number] Room: Gender: F [employer] Worker: : 1945 Requested By: AIDAN IVORY Order Number: [id number] Reading MD: Measurements Intervals Ledbetter Rate: 83 P: 42 OH: 164 QRS: -24 QRSD: 101 T: 21 QT: 385 QTc: 453 Interpretive Statements Sinus rhythm Incomplete RBBB and LAFB Low voltage, precordial leads RSR' in V1 or V2, right VCD or RVH Consider anterior infarct Please click the below link to view image of tracing.
--- NOTE | 2025-02-12 15:31 | RADIOLOGY REPORT ---
CHEST RADIOGRAPH Indication: Stroke Alert Technique: Single frontal view of the chest was obtained Comparison: DI CHEST,SINGLE VIEW on DOS: 04/18/24, DI CHEST,SINGLE VIEW on DOS: 12/27/23 FINDINGS: Lines and Tubes: Right-sided port-A-Cath with tip in superior vena cava. Lungs: No focal consolidation. Pleura: No effusion. No pneumothorax. Cardiomediastinal contours: Unremarkable Bones: No acute osseous abnormality. IMPRESSION: 1. No acute cardiopulmonary disease.
[2025-02-12 15:44] LABS: ALBUMIN 3.2 G/DL (3.4-5.0); ANION GAP 6 (8-16); BLOOD UREA NITROGEN 12 MG/DL (7-18); BUN/CREATININE RATIO 14.3 (10.0-20.0); CALCIUM 8.9 MG/DL (8.5-10.1); CHLORIDE 101 MMOL/L (99-107); CREATININE 0.84 MG/DL (0.40-0.90); GLUCOSE 117 MG/DL (70-104); SODIUM 136 MMOL/L (135-145); TOTAL CARBON DIOXIDE 29.1 MMOL/L (24-32); eCRCL 48 ML/MIN; eGFR 66 ML/MIN
[2025-02-12 15:47] LABS: BASOPHILS # (AUTO) 0.1 X10'3 (0-0.2); BASOPHILS % (AUTO) 1.4 % (0-1); EOSINOPHILS # (AUTO) 0.2 X10'3 (0-0.9); EOSINOPHILS % (AUTO) 2.9 % (0-6); HEMATOCRIT 36.9 % (35.0-45.0); HEMOGLOBIN 12.5 g/dl (12.0-16.0); LYMPHOCYTES # (AUTO) 1.7 X10'3 (1.1-4.8); LYMPHOCYTES % (AUTO) 29.5 % (21-51); MEAN CORPUSCULAR HEMOGLOBIN 31.9 PG (27.0-31.0); MEAN CORPUSCULAR HGB CONC 33.7 g/dL (33.0-36.5); MEAN CORPUSCULAR VOLUME 94.4 FL (78-98); MEAN PLATELET VOLUME 7.7 FL (7.4-10.4); MONOCYTES # (AUTO) 1.1 X10'3 (0-0.9); MONOCYTES % (AUTO) 18.4 % (2-12); NEUTROPHILS # (AUTO) 2.7 X10'3 (1.8-7.7); NEUTROPHILS % (AUTO) 47.8 % (42-75); PLATELET COUNT 283 X10'3 (140-440); RED BLOOD COUNT 3.91 X10'6 (4.20-5.60); RED CELL DISTRIBUTION WIDTH 17.6 % (11.5-14.5); WHITE BLOOD COUNT 5.7 X10'3 (4.5-11.0)
[2025-02-12 15:48] LABS: APTT 29 SECONDS (22-32); INR 1.1 INR; PROTHROMBIN TIME 11.5 SECONDS (9.0-12.0)
[2025-02-12 17:41] VITALS: BP 134/80; PULSE 88; RESP 18; O2SAT 96
--- NOTE | 2025-02-12 17:50 | RADIOLOGY REPORT ---
EXAM: MR MRI HEAD HISTORY: aloc hx OF cancer COMPARISON: None TECHNIQUE: MRI was performed utilizing multiple appropriate imaging planes and pulse sequences. FINDINGS: SUPRATENTORIAL REGION: No evidence for acute ischemia or intracranial hemorrhage. Scattered ill-defi parminder FLAIR hyperintensities are noted within the bilateral periventricular region, neal radiata and subcortical white matter. POSTERIOR FOSSA: Unremarkable. BRAINSTEM: Unremarkable. SELLAR/SUPRASELLAR REGION: Unremarkable. VENTRICLES, CISTERNS, SULCI: Age-appropriate. ORBITS: Unremarkable. PARANASAL SINUSES: Unremarkable. MASTOID AIR CELLS: Small bilateral mastoid effusions noted. VASCULATURE: Unremarkable. BONES/ SOFT TISSUES: Unremarkable. OTHER: None. IMPRESSION: 1. No acute intracranial process identified. 2. Moderate chronic microvascular ischemic changes. 3. Moderate bilateral mastoid effusions.
[2025-02-12 18:13] LABS: TOTAL CELLS COUNTED 100
[2025-02-12 18:14] LABS: ANISOCYTOSIS 1+; PLATELET ESTIMATE NORMAL
[2025-02-12 20:17] LABS: BILIRUBIN,URINE NEGATIVE (Neg); CLARITY,URINE CLEAR (Clear); COLOR,URINE YELLOW (Yellow); GLUCOSE, URINE NEGATIVE (Neg); KETONES,URINE NEGATIVE (Neg); LEUKOCYTE ESTERASE ,URINE NEGATIVE (Neg); NITRITES, URINE NEGATIVE (Neg); OCCULT BLOOD,URINE SMALL (Neg); PROTEIN,URINE NEGATIVE (Neg); UROBILINOGEN,URINE 0.2 E.U/dL (0.2-1.0)
[2025-02-12 20:21] LABS: UA COLLECTION TYPE CLN CATCH MIDSTREAM
[2025-02-12 20:24] LABS: BACTERIA,URINE FEW /HPF (Neg); SQUAMOUS EPITHELIAL CELL,UR FEW /LPF (FEW); TRANSITIONAL EPI CELLS,URINE FEW /HPF
[2025-02-13] MEDS ORDERED: GADOTERATE MEGLUMINE 7.5 MMOL/15 ML VIAL IV ONE (10:15)
== END 2025-02-12 20:55 | disposition home or self-care (01) ==
LOC: ER 14:51
DX: R41.82 Altered mental status, unspecified (principal); F41.9 Anxiety disorder, unspecified; E11.9 Type 2 diabetes mellitus without complications; I11.0 Hypertensive heart disease with heart failure; I50.9 Heart failure, unspecified; Z88.0 Allergy status to penicillin; Z88.1 Allergy status to other antibiotic agents; Z88.2 Allergy status to sulfonamides; Z88.6 Allergy status to analgesic agent; Z88.8 Allergy status to other drugs, medicaments and biological substances
CPT/HCPCS: 36415; 70551; 71045; 80048; 81001; 85007; 85025; 85610; 85730; 93005; 99285